=== PATIENT | female | born 1985 | race Caucasian/White ===

== ENCOUNTER 2019-01-12 21:12 | Emergency (ER) | payer SELFPAY ==
[2019-01-12] MEDS ORDERED: NACL 0.9% 1000 ML 1,000 ML IV ONE (21:18)
[2019-01-12] MEDS ORDERED: ZOFRAN IV ONE (21:18)
[2019-01-12 21:19] VITALS: BP 120/69
--- NOTE | 2019-01-12 21:19 | Event Note ---
ED Screening Note ED Screening Note: preg lmp 11/23 co n/v rx vitamin no vag bleed or dc This initial assessment/diagnostic orders/clinical plan/treatment(s) is/are subject to change based on patients health status, clinical progression and re- assessment by fellow clinical providers in the ED. Further treatment and workup at subsequent clinical providers discretion. Patient/guardian urged not to elope from the ED as their condition may be serious if not clinically assessed and managed. Initial orders include: labs hydrate zoftan
[2019-01-12 21:46] LABS: Mean Corpuscular HGB Conc 37 % (30-34); Mean Corpuscular Volume 92 fl (79-97); Platelet Count 211 K/mm3 (140-440); Red Blood Count 3.35 M/mm3 (3.65-5.03); Red Cell Distribution Width 13.6 % (13.2-15.2)
[2019-01-12 21:47] LABS: Hematocrit 30.9 % (30.3-42.9); Hemoglobin 11.3 gm/dl (10.1-14.3)
[2019-01-12 22:02] LABS: BUN/Creatinine Ratio 25; Blood Urea Nitrogen 15 mg/dL (7-17); Hemolysis Index 5
[2019-01-12 22:47] LABS: Bilirubin,Urine NEG (Negative); Blood,Urine NEG (Negative); Color,Urine Amber (Yellow); Mucus,Urine 2+ /HPF; Protein,Urine <15 mg/dL mg/dL (Negative); Urobilinogen,Urine < 2.0 mg/dL (<2.0)
--- NOTE | 2019-01-12 22:50 | Emergency Department Report ---
ED Abdominal Pain HPI - General Chief Complaint: Abdominal Pain Stated Complaint: BACK ABD PAIN Time Seen by Provider: 01/12/19 21:16 Source: patient Mode of arrival: Ambulatory Limitations: No Limitations - History of Present Illness Initial Comments: 33-year-old female comes in for lower back and lower abdominal pain that onset today about 1700. Patient minutes to nausea no vomiting. Patient places about 7 weeks . She denies any other symptoms. She is 6 para 5. She has started vitamins. Denies any complications of her other pregnancies. She has no past medical history is takes vitamins in no known drug allergies. MD Complaint: abdominal pain -: This afternoon Time: 19:00 Location: suprapubic, bilateral flank Migration to: no migration Severity scale (0 -10): 8 Quality: stabbing, aching, sharp Consistency: intermittent Improves With: nothing Worsens With: movement Associated Symptoms: nausea. denies: vomiting, diarrhea, chills, constipation, dysuria, hematemesis, melena, hematuria - Related Data Previous Rx's Medication Instructions Recorded Last Taken Type Ibuprofen [Motrin] 600 mg PO Q8H PRN #14 tablet 08/28/14 Unknown Rx traMADol [Ultram] 50 mg PO Q6HR PRN #14 tablet 08/28/14 Unknown Rx Allergies Allergy/AdvReac Type Severity Reaction Status Date / Time No Known Allergies Allergy Verified 01/12/19 21:17 ED Review of Systems ROS: Stated complaint: BACK ABD PAIN Other details as noted in HPI Comment: All other systems reviewed and negative ED Past Medical Hx - Past Medical History Previous Medical History?: No - Surgical History Past Surgical History?: Yes Additional Surgical History: brain surgery - Social History Smoking Status: Never Smoker Substance Use Type: None - Medications Home Medications: Home Medications Medication Instructions Recorded Confirmed Last Taken Type Ibuprofen [Motrin] 600 mg PO Q8H PRN #14 tablet 08/28/14 Unknown Rx traMADol [Ultram] 50 mg PO Q6HR PRN #14 tablet 08/28/14 Unknown Rx ED Physical Exam - General Limitations: No Limitations General appearance: alert, in no apparent distress - Head Head exam: Present: atraumatic, normocephalic - Eye Eye exam: Present: normal appearance - ENT ENT exam: Present: mucous membranes moist - Neck Neck exam: Present: normal inspection, full ROM - Respiratory Respiratory exam: Present: normal lung sounds bilaterally. Absent: respiratory distress - Cardiovascular Cardiovascular Exam: Present: regular rate, normal rhythm. Absent: systolic murmur, diastolic murmur, rubs, gallop - GI/Abdominal GI/Abdominal exam: Present: soft, tenderness (suprapubic), normal bowel sounds - Extremities Exam Extremities exam: Present: full ROM - Back Exam Back exam: Present: CVA tenderness (R), CVA tenderness (L) - Neurological Exam Neurological exam: Present: alert, oriented X3 - Psychiatric Psychiatric exam: Present: normal affect, normal mood - Skin Skin exam: Present: warm, dry, intact, normal color. Absent: rash ED Course Vital Signs 01/12/19 21:17 Temperature 98 F Pulse Rate 71 Respiratory 18 Rate Blood Pressure 120/69 [Right] O2 Sat by Pulse 100 Oximetry ED Medical Decision Making - Lab Data Result diagrams: 01/12/19 21:36 01/12/19 21:36 - Radiology Data Radiology results: report reviewed Patient: NIKKY MARIE MR#: [id number] : 1985 Acct:[id number] Age/Sex: 33 / F ADM Date: 01/12/19 Loc: ED Attending Dr: Ordering Physician: SARAH JAMESON Date of Service: 01/12/19 Procedure(s): US OB <= 14 weeks fetus Accession Number(s): [id number] cc: SARAH JAMESON PROCEDURE: US OB <= 14 WEEKS FETUS TECHNIQUE: Real-time transabdominal sonography of the uterus, placenta, amniotic fluid, adnexa, and fetus was performed with image documentation. Measurements were obtained to determine age/size. M-mode Doppler was used to document heartbeat. ADDITIONAL GESTATION: None. HISTORY: positive with abdominal pain COMPARISONS: None . FINDINGS: CRL: 15 mm, which corresponds to a gestational age of: 7 weeks, 6 days. Yolk Sac: Appropriate for gestational age. . Embryonic Cardiac Activity: 154 bpm . Gestational Sac: Size and shape are appropriate for gestational age Placenta: Normal Amniotic fluid: Appropriate for gestational age. Cervix: Normal. Right Ovary: There are 2 right ovarian cyst measuring 4.5 and 4.1 cm. . Left Ovary: Not identified. . Estimated delivery date: 08/25/2019 . Uterus and adnexa: Normal. IMPRESSION: Single live intrauterine gestation at approximately 7 weeks and 6 d ays . EDC by US 08/25/2019 . This document is electronically signed by Stef Erazo MD., January 13 2019 01:31:17 AM ET Transcribed By: CO Dictated By: STEF ERAZO MD Electronically Authenticated By: STEF ERAZO MD Signed Date/Time: 01/13/19 0033 DD/ 51 TD/TT: 01/12/19 235 - Medical Decision Making 83-year-old female 6 para 5 comes in for bilateral flank pain that radiates to her lower pelvic. Patient's ultrasound was completed which shows a gestational sac with embryo at 7 weeks 6 days exterminated date of confirmation obese 08/25/2019. Patient was given an Tylenol for pain management. Patient is referred back to her [facility] provider. Urinalysis is negative for any infection. We'll send out culture. Critical care attestation.: If time is entered above; I have spent that time in minutes in the direct care of this critically ill patient, excluding procedure time. ED Disposition Clinical Impression: Pelvic pain during Disposition: DC-01 TO HOME OR SELFCARE Is pt being admited?: No Does the pt Need Aspirin: No Condition: Stable Instructions: Abdominal Pain (ED) Additional Instructions: Continue taking her vitamins as prescribed. Increase her fluid intake. He can take Tylenol for pain management. Follow up with her [facility] provider in the next 2-3 days. Ultrasound was negative for any abnormalities. Embryo stable at 7 weeks 6 days. Urinalysis is negative blood work is stable. Referrals: JEANNIE ZAPATA MD [Primary Care Provider] - 3-5 Days
--- NOTE | 2019-01-13 00:33 | Ultrasound Report ---
PROCEDURE: US OB <= 14 WEEKS FETUS TECHNIQUE: Real-time transabdominal sonography of the uterus, placenta, amniotic fluid, adnexa, and fetus was performed with image documentation. Measurements were obtained to determine age/size. M-mode Doppler was used to document heartbeat. ADDITIONAL GESTATION: None. HISTORY: positive with abdominal pain COMPARISONS: None . FINDINGS: CRL: 15 mm, which corresponds to a gestational age of: 7 weeks, 6 days. Yolk Sac: Appropriate for gestational age. . Embryonic Cardiac Activity: 154 bpm . Gestational Sac: Size and shape are appropriate for gestational age Placenta: Normal Amniotic fluid: Appropriate for gestational age. Cervix: Normal. Right Ovary: There are 2 right ovarian cyst measuring 4.5 and 4.1 cm. . Left Ovary: Not identified. . Estimated delivery date: 08/25/2019 . Uterus and adnexa: Normal. IMPRESSION: Single live intrauterine gestation at approximately 7 weeks and 6 days . EDC by US 08/25 . This document is electronically signed by Stef Moreland MD., January 13 2019 01:31:17 AM ET
[2019-01-13] MEDS ORDERED: TYLENOL PO ONE (00:42)
== END 2019-01-13 01:44 | disposition home or self-care (01) ==
LOC: ED 21:12
DX: O26.891 Other specified pregnancy related conditions, first trimester (principal); R10.2 Pelvic and perineal pain; M54.5 Low back pain; Z3A.01 Less than 8 weeks gestation of pregnancy
CPT/HCPCS: 36415; 76801; 80048; 81001; 84702; 85027; 86900; 86901; 87076; 87086; 87186